=== PATIENT | female | born 1980 | race Caucasian/White ===

== ENCOUNTER 2019-10-25 01:04 | Emergency (ER) | payer BC ==
[2019-10-25] MEDS ORDERED: TETANUS & DIPHTHERIA TOX,ADULT 0.5 ML VIAL ONE (02:35)
--- NOTE | 2019-10-25 03:02 | ER ---
Nurse's Notes [facility] Name: Tabby Cordova Age: 39 yrs Sex: Female : 1980 Arrival Date: 10/25/2019 Time: 01:07 Bed 23 Private MD: Diagnosis: Puncture wound with foreign body of foot Presentation: 10/25 01:14 Presenting complaint: Patient states: she stepped on a piece of glass in her kitchen aa1 and thinks a small piece might still be stuck in her L heel. Transition of care: patient was not received from another setting of care. Onset of symptoms was October 25, 2019. Risk Assessment: Do you want to hurt yourself or someone else? Patient reports no desire to harm self or others. Initial Sepsis Screen: Does the patient meet any 2 criteria? No. Patient's initial sepsis screen is negative. Does the patient have a suspected source of infection? No. Patient's initial sepsis screen is negative. Care prior to arrival: None. 01:14 Method Of Arrival: Ambulatory aa1 01:14 Acuity: ROSELYN 4 aa1 Triage Assessment: 01:16 General: Appears in no apparent distress. comfortable, Behavior is calm, cooperative, aa1 appropriate for age. 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 - Coronavirus screen:: The patient has NOT traveled to [place] in the past 14 days. Proceed with normal triage process as indicated. - Social history:: Smoking status: Patient denies any tobacco usage or history of. - Ebola Screening: : No symptoms or risks identified at this time. Screenin:15 Abuse screen: Denies threats or abuse. Denies injuries from another. Nutritional aa1 screening: No deficits noted. Tuberculosis screening: No symptoms or risk factors identified. Fall Risk None identified. Assessment: 01:15 General: Appears in no apparent distress. comfortable, Behavior is calm, cooperative, aa1 appropriate for age. Pain: Complains of pain in heel of left foot Pain currently is 1 out of 10 on a pain scale. Quality of pain is described as stinging. Neuro: Level of Consciousness is awake, alert, obeys commands, Oriented to person, place, time, situation, Moves all extremities. Full function Gait is steady, Speech is normal. Respiratory: Airway is patent Respiratory effort is even, unlabored, Respiratory pattern is regular, symmetrical. GI: No signs and/or symptoms were reported involving the gastrointestinal system. : No signs and/or symptoms were reported regarding the genitourinary system. EENT: No signs and/or symptoms were reported regarding the EENT system. Derm: Skin is intact, is healthy with good turgor, Skin is pink, warm \T\ dry. Musculoskeletal: Circulation, motion, and sensation intact. Capillary refill < 3 seconds. Injury Description: Foreign body is located heel of left foot is shard of glass. 03:14 Reassessment: Patient appears in no apparent distress at this time. Patient is alert, aa1 oriented x 3, equal unlabored respirations, skin warm/dry/pink. Discussed d/c \T\ f/u instructions with pt; denies questions or concerns at this time. Ambulatory to lobby with steady gait. Vital Signs: 01:16 BP 114 / 60; Pulse 59; Resp 18; Temp 98.3; Pulse Ox 100% on R/A; Weight 90.72 kg; Height 5 ft. 5 in. (165.10 cm); Pain 1/10; 03:14 BP 119 / 62; Pulse 61; Resp 16; Pulse Ox 100% on R/A; Pain 0/10; aa1 01:16 Body Mass Index 33.28 (90.72 kg, 165.10 cm) ED Course: 01:07 Patient arrived in ED. jg7 01:14 Triage completed. aa1 01:15 Patient has correct armband on for positive identification. Bed in low position. Call aa1 light in reach. Pulse ox on. NIBP on. 01:16 Patient placed in an exam room, on a stretcher. aa1 01:55 Krystal De La Torre is Primary Nurse. 02:21 Sarbjit Andrew MD is Attending Physician. pkl 02:38 Jacqui Levin FNP-C is PHCP. aa1 02:38 Sarbjit Andrew MD is Attending Physician. aa1 03:14 No provider procedures requiring assistance completed. Patient did not have IV access aa1 during this emergency room visit. 03:44 Foot Left 2 View In Process Unspecified. EDMS Administered Medications: 02:33 Drug: Tetanus-Diphtheria Toxoid Adult 0.5 ml {Rn Homecare: [employer]. Exp: aa1 07/30/2021. Lot #: [id number]. } Route: IM; Site: right deltoid; Outcome: 03:01 Discharge ordered by . snw 03:14 Discharged to home ambulatory, with friend. aa1 03:14 Condition: good 03:14 Discharge instructions given to patient, Instructed on discharge instructions, follow up and referral plans. medication usage, Demonstrated understanding of instructions, follow-up care, medications, Prescriptions given X 1. 03:17 Patient left the ED. aa1 Addendum: 10/29/2019 05:41 Addendum: Radiology Result: Radiology finding reports that a radiopaque foreign body is s g not seen, however a follow up CT is recommended if the pt is still experiencing symptoms that a foreign body may be present. Signatures: Dispatcher [employer] EDMS Latrell Aguilar RN RN Gisella Smith RN RN aa1 Sarbjit Andrew MD MD pkl Therrien, Shelly, ACCOUNTS RECEIVABLE PROCESSOR-C ACCOUNTS RECEIVABLE PROCESSOR-Csnw Krystal De La Torre Jessica jg7 Corrections: (The following items were deleted from the chart) 10/25 02:38 01:16 90.72 kg; Height 5 ft. 5 in.; BMI: 33.2; Pain 10; aa1
--- NOTE | 2019-10-25 03:03 | EDPHYS ---
Physician Documentation [facility] Name: Tabby Cordova Age: 39 yrs Sex: Female : 1980 Arrival Date: 10/25/2019 Time: 01:07 Bed 23 Private MD: ED Physician Sarbjit Andrew HPI: 10/25 03:15 This 39 yrs old Female presents to ER via Ambulatory with complaints of Foot snw Injury. 03:15 The patient presents with pain, that is acute. The complaints affect the heel of left snw foot. Context: The problem was sustained at home. Onset: The symptoms/episode began/occurred suddenly, just prior to arrival. Modifying factors: The symptoms are alleviated by nothing. the symptoms are aggravated by weight bearing. Treatment prior to arrival includes: no previous treatment. Severity of symptoms: At their worst the symptoms were moderate. The patient has not experienced similar symptoms in the past. 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 - Coronavirus screen:: The patient has NOT traveled to [place] in the past 14 days. Proceed with normal triage process as indicated. - Social history:: Smoking status: Patient denies any tobacco usage or history of. - Ebola Screening: : No symptoms or risks identified at this time. ROS: 03:14 Constitutional: Negative for fever, chills, and weight loss, Eyes: Negative for injury, snw pain, redness, and discharge, ENT: Negative for injury, pain, and discharge, Neck: Negative for injury, pain, and swelling, Cardiovascular: Negative for chest pain, palpitations, and edema, Respiratory: Negative for shortness of breath, cough, wheezing, and pleuritic chest pain, Abdomen/GI: Negative for abdominal pain, nausea, vomiting, diarrhea, and constipation, Back: Negative for injury and pain, : Negative for injury, bleeding, discharge, and swelling, MS/Extremity: Negative for injury and deformity, Neuro: Negative for headache, weakness, numbness, tingling, and seizure, Psych: Negative for depression, anxiety, suicide ideation, homicidal ideation, and hallucinations. 03:14 Skin: Positive for stepped on piece of glass and it remained in heel. Exam: 03:10 Constitutional: This is a well developed, well nourished patient who is awake, alert, snw and in no acute distress. Head/Face: Normocephalic, atraumatic. Eyes: Pupils equal round and reactive to light, extra-ocular motions intact. Lids and lashes normal. Conjunctiva and sclera are non-icteric and not injected. Cornea within normal limits. Periorbital areas with no swelling, redness, or edema. ENT: Nares patent. No nasal discharge, no septal abnormalities noted. Tympanic membranes are normal and external auditory canals are clear. Oropharynx with no redness, swelling, or masses, exudates, or evidence of obstruction, uvula midline. Mucous membranes moist. Neck: Trachea midline, no thyromegaly or masses palpated, and no cervical lymphadenopathy. Supple, full range of motion without nuchal rigidity, or vertebral point tenderness. No Meningismus. Chest/axilla: Normal chest wall appearance and motion. Nontender with no deformity. No lesions are appreciated. Cardiovascular: Regular rate and rhythm with a normal S1 and S2. No gallops, murmurs, or rubs. Normal PMI, no JVD. No pulse deficits. Respiratory: Lungs have equal breath sounds bilaterally, clear to auscultation and percussion. No rales, rhonchi or wheezes noted. No increased work of breathing, no retractions or nasal flaring. Abdomen/GI: Soft, non-tender, with normal bowel sounds. No distension or tympany. No guarding or rebound. No evidence of tenderness throughout. Back: No spinal tenderness. No costovertebral tenderness. Full range of motion. Skin: Warm, dry with normal turgor. Normal color with no rashes, no lesions, and no evidence of cellulitis. Neuro: Awake and alert, GCS 15, oriented to person, place, time, and situation. Cranial nerves II-XII grossly intact. Motor strength 5/5 in all extremities. Sensory grossly intact. Cerebellar exam normal. Normal gait. Psych: Awake, alert, with orientation to person, place and time. Behavior, mood, and affect are within normal limits. 03:10 Musculoskeletal/extremity: Extremities: grossly normal except: tenderness, foreign body sensation to foot post stepping on broken glass, ROM: no acute changes, Circulation is intact in all extremities. left plantar heel with possible foreign body on x-ray, needle and scalpel used to remove piece of glass. Pt tolerated well. Vital Signs: 01:16 BP 114 / 60; Pulse 59; Resp 18; Temp 98.3; Pulse Ox 100% on R/A; Weight 90.72 kg; wh Height 5 ft. 5 in. (165.10 cm); Pain 1/10; 03:14 BP 119 / 62; Pulse 61; Resp 16; Pulse Ox 100% on R/A; Pain 0/10; aa1 01:16 Body Mass Index 33.28 (90.72 kg, 165.10 cm) Procedures: 03:12 I \T\ D: Incision and drainage was performed for an abscess of the left plantar heel snw Prepped with Betadine, Anesthetized with nothing. Incised with needle. Dressing: sterile 4x4 gauze, bandaid the patient tolerated the procedure well, piece of glass removed. MDM: 02:21 Patient medically screened. pkl 03:14 Data reviewed: vital signs, nurses notes. Data interpreted: Pulse oximetry: on room air snw is 100 %. Interpretation: normal. Counseling: I had a detailed discussion with the patient and/or guardian regarding: the historical points, exam findings, and any diagnostic results supporting the discharge/admit diagnosis, radiology results, the need for outpatient follow up, to return to the emergency department if symptoms worsen or persist or if there are any questions or concerns that arise at home. Special discussion: I discussed in detail with the patient the higher chance of wound infection based on his presenting history. Based on the history and exam findings, there is no indication for further emergent testing or inpatient evaluation. I discussed with the patient/guardian the need to see the primary care provider for further evaluation of the symptoms. 10/25 02:19 Order name: Urine Dipstick--Ancillary (enter results) [facility] 10/25 02:19 Order name: Urine --Ancillary (enter results) [facility] 10/25 02:33 Order name: Foot Left 2 View EDMS Administered Medications: 02:33 Drug: Tetanus-Diphtheria Toxoid Adult 0.5 ml {[place] Worker: [employer]. Exp: aa1 07/30/2021. Lot #: [id number]. } Route: IM; Site: right deltoid; Disposition: 04:04 Co-signature as Attending Physician, Sarbjit Andrew MD. [email or web address] Disposition: 10/25/19 03:01 Discharged to Home. Impression: Puncture wound with foreign body of foot. - Condition is Stable. - Discharge Instructions: Puncture Wound, Foreign Body, Foot Pain. - Prescriptions for Mobic 7.5 mg Oral Tablet - take 1 tablet by ORAL route once daily take with food; 20 tablet. - Medication Reconciliation Form, Thank You Letter, Antibiotic Education, Prescription Opioid Use form. - Follow up: Emergency Department; When: As needed; Reason: Worsening of condition. Follow up: Private Physician; When: 2 - 3 days; Reason: Recheck today's complaints, Continuance of care, Re-evaluation by your physician. Signatures: Dispatcher [employer] EDGisella Cho RN RN aa1 Sarbjit Andrew MD MD pkl Therrien, Shelly, CERTIFIED INDUSTRIAL HYGIENIST-C CERTIFIED INDUSTRIAL HYGIENIST-Csnw Krystal De La Torre Corrections: (The following items were deleted from the chart) 03:17 03:01 10/25/2019 03:01 Discharged to Home. Impression: Puncture wound with foreign body aa1 of foot. Condition is Stable. Forms are Medication Reconciliation Form, Thank You Letter, Antibiotic Education, Prescription Opioid Use. Follow up: Emergency Department; When: As needed; Reason: Worsening of condition. Follow up: Private Physician; When: 2 - 3 days; Reason: Recheck today's complaints, Continuance of care, Re-evaluation by your physician. snw
[2019-10-25 03:41] LABS: Urine Blood TRACE (NEG); Urine Glucose NEGATIVE (NEG); Urine Protein NEGATIVE (NEG); Urine Specific Gravity 1.025 (1.005-1.030); Urine pH 5.5 (5.0-7.0)
--- NOTE | 2019-10-25 09:14 | RAD REPORT ---
EXAM DESCRIPTION: RAD - Foot Left 2 View - 10/25/2019 3:39 am CLINICAL HISTORY: Left Foot pain FINDINGS: No fracture or dislocation is seen. A radiopaque foreign body is not seen. If the patient continues have symptoms to suggest that a forei gn body or be present then CT would be recommended
== END 2019-10-25 03:17 | disposition home or self-care (01) ==
LOC: ER 01:04
PROC: 0JCR3ZZ Extirpation of Matter from Left Foot Subcutaneous Tissue and Fascia, Percutaneous Approach (ICD-10-PCS; principal; 2019-10-25)
PROC: 0J9R3ZZ Drainage of Left Foot Subcutaneous Tissue and Fascia, Percutaneous Approach (ICD-10-PCS; 2019-10-25)
DX: S91.342A Puncture wound with foreign body, left foot, initial encounter (principal); W25.XXXA Contact with sharp glass, initial encounter; W45.8XXA Other foreign body or object entering through skin, initial encounter; Y93.9 Activity, unspecified; Y92.9 Unspecified place or not applicable; Z23 Encounter for immunization; Z88.5 Allergy status to narcotic agent; E03.9 Hypothyroidism, unspecified
CPT/HCPCS: 81003; 81025; 90471; 90714; 99284